=== PATIENT | female | born 1950 | race Caucasian/White ===

== ENCOUNTER 2018-07-31 13:34 | Emergency (ER) | payer MEDICAID, MEDICARE, OTHER ==
[~2018-07-31] VITALS: Ht 165.1 cm; Wt 68.1 kg
[~2018-07-31 13:34] MED LIST: ALPR1TAB2 PO; ASPI-496 PO; TEMA15CA PO
[2018-07-31] MEDS ORDERED: MELA1TAB19 SL (14:08)
[2018-07-31] MEDS ORDERED: LEVO112T4 PO (14:08)
[2018-07-31] MEDS ORDERED: ASPI-650 PO (14:08)
[2018-07-31] MEDS ORDERED: ONDANSETRON 2MG/ML, 2ML IVPush ONE (14:30)
[2018-07-31] MEDS ORDERED: SODIUM CHLORIDE FLUSH 10ML SYR IVF ONE (14:30)
[2018-07-31] MEDS ORDERED: MORPHINE SULFATE 4 MG/ML, 1ML IVPush PRN (14:30)
[2018-07-31 14:33] LABS: MICROSCOPIC NOT IND
[2018-07-31 14:34] LABS: BASOPHILS # (AUTO) 0.06 x10^3/uL (0-0.1); BASOPHILS % (AUTO) 1 % (0-1); EOSINOPHILS # (AUTO) 0.35 x10^3/uL (0-0.4); EOSINOPHILS % (AUTO) 5 % (1-7); LYMPHOCYTES # (AUTO) 2.73 x10^3/uL (1-3.4); LYMPHOCYTES % (AUTO) 42 % (22-44); MD NO; MEAN CORPUSCULAR HEMOGLOBIN 30.4 pg (27.0-34.8); MEAN CORPUSCULAR VOLUME 92.1 fL (80-100); MEAN PLATELET VOLUME 8.4 fL (7.4-10.4); MONOCYTES # (AUTO) 0.51 x10^3/uL (0.2-0.8); MONOCYTES % (AUTO) 8 % (2-9); NEUTROPHILS # (AUTO) 2.79 x10^3/uL (1.8-6.8); NEUTROPHILS % (AUTO) 43 % (42-75); PLATELET COUNT 297 x10^3/uL (130-400); RED BLOOD COUNT 4.37 x10^6/uL (3.82-5.3); RED CELL DISTRIBUTION WIDTH 16.1 % (9.6-15.2)
[2018-07-31 14:35] LABS: CULTURE INDICATED? NO
[2018-07-31 14:40] LABS: ALBUMIN 3.6 g/dL (3.4-5.0); ANION GAP 8 mmol/L (5-15); CALCIUM 9.1 mg/dL (8.5-10.1); CHLORIDE 111 mmol/L (98-107)
[2018-07-31 14:44] LABS: ALANINE AMINOTRANSFERASE 68 U/L (12-78); ALKALINE PHOSPHATASE 58 U/L (45-117); BILIRUBIN,TOTAL 0.3 mg/dL (0.2-1.0); CREATININE 1.21 mg/dL (0.55-1.02); TOTAL PROTEIN 8.1 g/dL (6.4-8.2)
[2018-07-31] MEDS ORDERED: OMNIPAQUE 350 MG/ML, 100ML BOTTLE ONE (15:06)
[2018-07-31 16:08] VITALS: BP 109/79
== END 2018-07-31 16:50 | disposition home or self-care (01) ==
LOC: ED 16:09
DX: R10.32 Left lower quadrant pain (principal); Z87.891 Personal history of nicotine dependence; Z88.0 Allergy status to penicillin; Z88.5 Allergy status to narcotic agent; Z88.8 Allergy status to other drugs, medicaments and biological substances
CPT/HCPCS: 36415; 74177; 80053; 81003; 83690; 85025; 99284; Q9967

== ENCOUNTER 2018-08-27 17:27 | Emergency (ER) | payer OTHER ==
[~2018-08-27] VITALS: Ht 162.6 cm; Wt 70.0 kg
[~2018-08-27 17:27] MED LIST changes: +ASPI-650 PO; +LEVO112T4 PO; +MELA1TAB19 SL
[2018-08-27 18:02] LABS: MICROSCOPIC NOT IND
[2018-08-27 18:06] LABS: CULTURE INDICATED? NO
[2018-08-27 18:08] LABS: BASOPHILS # (AUTO) 0.05 x10^3/uL (0-0.1); BASOPHILS % (AUTO) 1 % (0-1); EOSINOPHILS # (AUTO) 0.22 x10^3/uL (0-0.4); EOSINOPHILS % (AUTO) 4 % (1-7); LYMPHOCYTES # (AUTO) 2.52 x10^3/uL (1-3.4); LYMPHOCYTES % (AUTO) 45 % (22-44); MD NO; MEAN CORPUSCULAR HEMOGLOBIN 30.6 pg (27.0-34.8); MEAN CORPUSCULAR VOLUME 92.7 fL (80-100); MEAN PLATELET VOLUME 8.2 fL (7.4-10.4); MONOCYTES # (AUTO) 0.44 x10^3/uL (0.2-0.8); MONOCYTES % (AUTO) 8 % (2-9); NEUTROPHILS # (AUTO) 2.43 x10^3/uL (1.8-6.8); NEUTROPHILS % (AUTO) 43 % (42-75); PLATELET COUNT 310 x10^3/uL (130-400); RED BLOOD COUNT 4.48 x10^6/uL (3.82-5.3); RED CELL DISTRIBUTION WIDTH 15.8 % (9.6-15.2)
[2018-08-27 18:13] LABS: ANION GAP 8 mmol/L (5-15); CALCIUM 9.8 mg/dL (8.5-10.1); CHLORIDE 107 mmol/L (98-107); CREATININE 1.14 mg/dL (0.55-1.02)
[2018-08-27 18:20] LABS: ALANINE AMINOTRANSFERASE 93 U/L (12-78); ALKALINE PHOSPHATASE 55 U/L (45-117); BILIRUBIN,TOTAL 0.5 mg/dL (0.2-1.0); TOTAL PROTEIN 8.6 g/dL (6.4-8.2)
[2018-08-27] MEDS ORDERED: KETOROLAC 30 MG/1 ML ONE (18:38)
[2018-08-27] MEDS ORDERED: SODIUM CHLORIDE FLUSH 10ML SYR IVF ONE (19:00)
[2018-08-27] MEDS ORDERED: KETOROLAC 30 MG/1 ML IVPush ONE (19:00)
[2018-08-27 19:48] VITALS: BP 147/82
== END 2018-08-27 20:29 | disposition home or self-care (01) ==
LOC: ED 18:31
DX: K59.00 Constipation, unspecified (principal); R94.5 Abnormal results of liver function studies; Z86.73 Personal history of transient ischemic attack (TIA), and cerebral infarction without residual deficits
CPT/HCPCS: 36415; 74021; 76700; 80053; 81003; 83690; 85025; 96374; 99284; J1885

== ENCOUNTER 2020-01-30 15:50 | Emergency (ER) | payer OTHER ==
[~2020-01-30] VITALS: Ht 157.5 cm; Wt 52.6 kg
[2020-01-30] MEDS ORDERED: SODIUM CHLORIDE FLUSH 10ML SYR IVF ONE (16:30)
[2020-01-30] MEDS ORDERED: DIAZEPAM 5 MG/ML, 2ML IV ONE (16:30)
[2020-01-30] MEDS ORDERED: LORazepam 2 MG/ML, 1ML IVPush ONE (16:30)
[2020-01-30 16:34] LABS: MEAN CORPUSCULAR HEMOGLOBIN 40.3 pg (27.0-34.8); MEAN CORPUSCULAR HGB CONC 32.9 g/dL (32.4-35.8); MEAN CORPUSCULAR VOLUME 122.5 fL (80-100); MEAN PLATELET VOLUME 9.2 fL (7.4-10.4); PLATELET COUNT 208 x10^3/uL (130-400); RED BLOOD COUNT 3.02 x10^6/uL (3.82-5.3); RED CELL DISTRIBUTION WIDTH 16.7 % (9.6-15.2)
--- NOTE | 2020-01-30 16:35 | NUR ---
BREAK RN: PT IN CT AT THIS TIME
[2020-01-30 16:42] LABS: ALANINE AMINOTRANSFERASE 17 U/L (12-78); ALBUMIN 3.8 g/dL (3.4-5.0); ANION GAP 6 mmol/L (5-15); CALCIUM 9.4 mg/dL (8.5-10.1); CHLORIDE 107 mmol/L (98-107); CREATININE 1.24 mg/dL (0.55-1.02)
[2020-01-30 16:46] LABS: ALKALINE PHOSPHATASE 54 U/L (45-117); BILIRUBIN,TOTAL 0.8 mg/dL (0.2-1.0); TOTAL PROTEIN 7.6 g/dL (6.4-8.2); TROPONIN I < 0.015 ng/mL (0.000-0.045)
--- NOTE | 2020-01-30 16:53 | NUR ---
BREAK RN: PT RETURNED FROM CT, ATTEMPTED TO START IV TO MEDICATE PT AND PT QUESTIONING VALIUM, SHE STATES SHE TOOK XANAX 0.5MG 2 HOURS AGO AND DOES NOT FEEL ANXIOUS AND WOULD LIKE TO HOLD ON THE VALIUM UNTIL SHE FINDS OUT HER LAB WORK. REPORT TO SHARONA PRAJAPATI. NU NOTIFIED
[2020-01-30 17:16] LABS: BASOPHILS # (AUTO) 0.03 x10^3/uL (0-0.1); BASOPHILS % (AUTO) 1 % (0-1); EOSINOPHILS # (AUTO) 0.19 x10^3/uL (0-0.4); EOSINOPHILS % (AUTO) 3 % (1-7); LYMPHOCYTES % (AUTO) 40 % (22-44); MD MORPH REVIEW ONLY; MONOCYTES # (AUTO) 0.28 x10^3/uL (0.2-0.8); MONOCYTES % (AUTO) 5 % (2-9); NEUTROPHILS # (AUTO) 2.86 x10^3/uL (1.8-6.8); NEUTROPHILS % (AUTO) 52 % (42-75)
[2020-01-30 17:17] LABS: ANISOCYTOSIS 1+
[2020-01-30 17:18] LABS: <PLATELET ESTIMATE> ADEQUATE; <PLT MORPHOLOGY> NORMAL PLT MORPH; OVALOCYTES 1+
[2020-01-30 17:19] LABS: TEAR DROPS 1+
--- NOTE | 2020-01-30 17:29 | NUR ---
Report received from ALO Mendez and ALO Soriano. This RN to assume care. Patient presents to ER c/o L side CP into left side neck. Patient also has right side weakness in lower ext and feels off balance today. Patient has had the weakness x1.5 years. Patient is also anxious; she took her Xanax today around 1430. Patient is in NAD. Respirations even and unlabored.
[2020-01-30 18:15] VITALS: BP 147/90
--- NOTE | 2020-01-30 18:29 | NUR ---
Patient states she was given the option to stay or go home. Patient decided to go home. ERP will recheck.
--- NOTE | 2020-01-30 19:03 | NUR ---
Discharge instructions given. All questions and concerns addressed. Patient ambulatory with a steady gait. Belongings with patient.
== END 2020-01-30 19:05 | disposition home or self-care (01) ==
LOC: ED 16:52
DX: R07.89 Other chest pain (principal); L89.151 Pressure ulcer of sacral region, stage 1; R42 Dizziness and giddiness; R53.1 Weakness; J44.9 Chronic obstructive pulmonary disease, unspecified; Z90.49 Acquired absence of other specified parts of digestive tract; Z90.710 Acquired absence of both cervix and uterus; Z86.73 Personal history of transient ischemic attack (TIA), and cerebral infarction without residual deficits; Z87.891 Personal history of nicotine dependence; Z88.0 Allergy status to penicillin; Z88.2 Allergy status to sulfonamides; Z88.8 Allergy status to other drugs, medicaments and biological substances
CPT/HCPCS: 36415; 70450; 71046; 80053; 83880; 84145; 84443; 84484; 85025; 85379; 93005; 99284

== ENCOUNTER 2021-04-06 18:07 | Emergency (ER) | payer OTHER, MEDICARE ==
[~2021-04-06] VITALS: Ht 165.1 cm; Wt 53.0 kg
[~2021-04-06 18:07] MED LIST changes: -ASPI-650 PO; +ASPI325T20 PO
--- NOTE | 2021-04-06 20:15 | NUR ---
PT WC'D TO ROOM 26 W/ C/O R 4TH TOE DISLOCATED AFTER PT STATES SHE HIT THE CORNER OF THE COFFEE TABLE. PT DENIES ANY PAIN. STATES SHE ONLY NOTICED THE DEFORMATION AND DECIDED TO COME TO ED. PT RESTING ON GURNEY. NADN. VSS. WARM BLANKETS IN PLACE.
--- NOTE | 2021-04-06 20:16 | NUR ---
PT CHART REVIEWED AND PLACED FOR RECHECK.
[2021-04-06 20:23] VITALS: BP 154/75
== END 2021-04-06 21:27 | disposition home or self-care (01) ==
LOC: ED 19:00
DX: S92.511A Displaced fracture of proximal phalanx of right lesser toe(s), initial encounter for closed fracture (principal); Z86.73 Personal history of transient ischemic attack (TIA), and cerebral infarction without residual deficits; X58.XXXA Exposure to other specified factors, initial encounter; Y93.89 Activity, other specified; Y92.009 Unspecified place in unspecified non-institutional (private) residence as the place of occurrence of the external cause; Y99.8 Other external cause status
CPT/HCPCS: 28515; 99285